=== PATIENT | female | born 1960 | race African-American/Black ===

== ENCOUNTER 2020-06-20 16:07 | Outpatient (CLI) | payer OTHER | END 2020-06-20 16:08 | disposition home or self-care (01) | LOC: CSHRAD 16:07 | PROVIDERS: ATTEND Psychiatry & Neurology Neurology | DX: M06.819 Other specified rheumatoid arthritis, unspecified shoulder (principal); M17.11 Unilateral primary osteoarthritis, right knee; M19.011 Primary osteoarthritis, right shoulder; M25.461 Effusion, right knee; Z98.890 Other specified postprocedural states ==